=== PATIENT | female | born 1970 | race Caucasian/White ===

== ENCOUNTER 2016-10-27 18:05 | Emergency (ER) | payer MEDICAID ==
[2016-10-27 18:32] VITALS: O2SAT 100
--- NOTE | 2016-10-27 20:30 | C.PDOC ---
History Of Present Illness The patient, a 45 y/o female, presents to the ED for evaluation of dizziness which has been occurring in intermittent episodes for the past week. Patient describes her symptoms as a "room spinning" sensation and notes mild headache and nausea. Patient denies fever, chills, neck pain, extremity numbness/ weakness. Chief Complaint (Nursing): Dizziness/Lightheaded History Per: Patient History/Exam Limitations: no limitations Onset/Duration Of Symptoms: Intermittent Episodes (1 week ) Current Symptoms Are (Timing): Still Present Associated Symptoms Preceding Syncopal Episode: No Predromal Symptoms (Sudden Onset) Seizure Or Post-ictal Symptoms: None Fall Associated With With Symptoms: No Additional History Per: Patient Past Medical History Reviewed: Historical Data, Nursing Documentation, Vital Signs Vital Signs: Last Vital Signs Temp 98.1 F 10/27/16 18:29 Pulse 54 L 10/27/16 18:29 Resp 16 10/27/16 18:29 BP 105/69 10/27/16 18:29 Pulse Ox 100 10/27/16 22:56 - Medical History PMH: Asthma, Gastritis Surgical History: No Surg Hx Family History: States: Unknown Family Hx - Social History Hx Alcohol Use: Yes Hx Substance Use: No - Immunization History Hx Tetanus Toxoid Vaccination: No Hx Influenza Vaccination: No Hx Pneumococcal Vaccination: No Review Of Systems Except As Marked, All Systems Reviewed And Found Negative. Constitutional: Negative for: Fever, Chills Gastrointestinal: Positive for: Nausea Musculoskeletal: Negative for: Neck Pain Neurological: Positive for: Headache (mild ), Dizziness. Negative for: Weakness , Numbness Physical Exam - Physical Exam Appears: Non-toxic, No Acute Distress Skin: Normal Color, Warm, Dry Head: Atraumatic, Normacephalic Eye(s): bilateral: PERRL, EOMI, Other (+mild lateral nystagmus ) Ear(s): Bilateral: Normal Nose: Normal, No Discharge Oral Mucosa: Moist Throat: Normal, No Erythema, No Exudate Neck: Normal ROM, Supple Chest: Symmetrical, No Deformity, No Tenderness Cardiovascular: Rhythm Regular, No Murmur Respiratory: Normal Breath Sounds, No Rales, No Rhonchi, No Wheezing Back: Normal Inspection, No Vertebral Tenderness, No Paraspinal Tenderness Extremity: Normal ROM, Capillary Refill (less than 2 seconds ) Neurological/Psych: Oriented x3, Normal Speech, Normal Cognition, Other (no focal deficits ) Gait: Steady ED Course And Treatment - Laboratory Results Result Diagrams: 10/27/16 20:48 10/27/16 20:48 O2 Sat by Pulse Oximetry: 100 (on RA) Pulse Ox Interpretation: Normal Progress Note: labs, CT Head, and EKG ordered and reviewed. Patient received Antivert PO and Ativan IV. Disposition Counseled Patient/Family Regarding: Diagnosis - Disposition Referrals: [facility] [Outside] Disposition: HOME/ ROUTINE Disposition Time: 22:47 Condition: STABLE Prescriptions: Meclizine [Antivert] 12.5 mg PO Q6 #20 tab Potassium Chloride 10 meq PO DAILY #14 tab.er.prt Instructions: Vertigo (ED), Hypokalemia (DC), Dizziness (ED) - POA Present On Arrival: None - Clinical Impression Clinical Impression: Vertigo, Dizziness, Hypokalemia - Scribe Statement The provider has reviewed the documentation as recorded by the Scribe (Soila Stallings) Provider Attestation: All medical record entries made by the Scribe were at my direction and personally dictated by me. I have reviewed the chart and agree that the record accurately reflects my personal performance of the history, physical exam, medical decision making, and the department course for this patient. I have also personally directed, reviewed, and agree with the discharge instructions and disposition.
[2016-10-27 21:01] LABS: CHLORIDE 100 mmol/L (98-107); POTASSIUM 2.7 mmol/L (3.6-5.2); SODIUM 138 mmol/L (132-148)
[2016-10-27 21:03] LABS: ALB/GLOB RATIO 1.3 (1.0-2.1); ALKALINE PHOSPHATASE 61 U/L (38-126); ALT/SGPT 32 U/L (9-52); AST/SGOT 25 U/L (14-36); BILIRUBIN,TOTAL 0.7 mg/dL (0.2-1.3); BLOOD UREA NITROGEN 8 mg/dL (7-17); CARBON DIOXIDE 27 mmol/L (22-30); GFR AFRICAN-AMERICAN > 60; TOTAL PROTEIN 5.9 g/dL (6.3-8.3)
[2016-10-27 21:04] LABS: CALCIUM 8.1 mg/dl (8.6-10.4); GLUCOSE,RANDOM 81 mg/dL (65-105)
[2016-10-27 21:10] LABS: BASO % 0.5 % (0.0-2.0); EOS # 0.2 K/uL (0.0-0.7); EOS % 3.7 % (0.0-4.0); HEMATOCRIT 39.3 % (34.0-47.0); LYMPH % 33.8 % (20.0-40.0); MEAN CELL VOLUME 89.6 fL (81.0-99.0); MEAN CORPUSCULAR HGB CONC 33.5 g/dL (33.0-37.0); MEAN PLATELET VOLUME 8.3 fL (7.2-11.7); MONO # 0.9 K/uL (0.0-0.8); MONO % 14.6 % (0.0-10.0); NRBC % 0.4 % (0.0-2.0); RED CELL DISTRIBUTION WIDTH 12.7 % (11.5-14.5); WHITE BLOOD COUNT 5.9 K/uL (4.8-10.8)
--- NOTE | 2016-10-27 21:24 | CT ---
EXAM: CT Head Without Intravenous Contrast CLINICAL HISTORY: 45 years old, female; Pain; Headache; Headache not specified TECHNIQUE: Axial computed tomography images of the head/brain without intravenous contrast. This CT exam was performed using one or more of the following dose reduction techniques: automated exposure control, adjustment of the mA and/or kV according to patient size, and/or use of iterative reconstruction technique. COMPARISON: No relevant prior studies available. FINDINGS: Brain: No intracranial hemorrhage. No mass. No definite edema. Ventricles: No hydrocephalus. Bones/joints: No acute fracture. Soft tissues: Unremarkable. Sinuses: No acute sinusitis. Mastoid air cells: No mastoid effusion. Orbits: Unremarkable as visualized. IMPRESSION: 1. No acute intracranial abnormality. 2. Incidental/non-acute findings are described above.
[2016-10-27] MEDS ORDERED: Potassium Chloride 20 mEq ER Tab PO STA (22:23)
[2016-10-27] MEDS ORDERED: Potassium Chloride 20 mEq ER Tab PO ONE (22:55)
[2016-10-28 00:01] VITALS: BP 127/68; PULSE 60; RESP 20; TEMP 98
--- NOTE | 2016-10-28 11:47 | CARD ---
APPROVED REPORT EKG Measurement Heart [id number] UT 138P-3 [id number] <Conclusion> Sinus bradycardia Cannot rule out Anterior infarct, age undetermined Abnormal ECG
--- NOTE | 2016-10-28 11:50 | CARD ---
APPROVED REPORT EKG Measurement Heart [id number] ND 128P8 [id number] <Conclusion> Sinus bradycardia Inferior infarct, age undetermined Cannot rule out Anterior infarct, age undetermined Abnormal ECG
== END 2016-10-27 23:00 | disposition home or self-care (01) ==
LOC: C.ER 18:05
DX: E87.6 Hypokalemia (principal); R42 Dizziness and giddiness
CPT/HCPCS: 70450; 80053; 85025; 93005; 96374; 99285; J2060

== ENCOUNTER 2018-01-20 16:35 | Emergency (ER) | payer MEDICAID ==
[2018-01-20 16:44] VITALS: RESP 18; O2SAT 98
[2018-01-20] MEDS ORDERED: Sodium Chloride 0.9% 1,000 ML IV ONE (17:01)
[2018-01-20] MEDS ORDERED: Sodium Chloride 0.9% 1,000 ML ONE (17:08)
[2018-01-20 17:26] LABS: BASO % 0.6 % (0.0-2.0); EOS # 0.2 K/uL (0.0-0.7); EOS % 4.7 % (0.0-4.0); LYMPH # 1.3 K/uL (1.0-4.3); LYMPH % 27.8 % (20.0-40.0); MEAN CELL VOLUME 88.5 fL (81.0-99.0); MEAN CORPUSCULAR HEMOGLOBIN 30.5 pg (27.0-31.0); MEAN CORPUSCULAR HGB CONC 34.4 g/dL (33.0-37.0); MEAN PLATELET VOLUME 7.6 fL (7.2-11.7); MONO # 0.7 K/uL (0.0-0.8); MONO % 14.4 % (0.0-10.0); NEUT # 2.4 K/uL (1.8-7.0); NEUT % 52.5 % (50.0-75.0); NRBC % 0.1 % (0.0-2.0); RBC 4.27 Mil/uL (3.80-5.20); RED CELL DISTRIBUTION WIDTH 12.6 % (11.5-14.5); WHITE BLOOD COUNT 4.7 K/uL (4.8-10.8)
--- NOTE | 2018-01-20 17:43 | RAD ---
Date of service: 01/20/2018 HISTORY: SOB COMPARISON: 08/21/2015 TECHNIQUE: Chest PA and lateral FINDINGS: LUNGS: No active pulmonary disease. PLEURA: No significant pleural effusion identified. No pneumothorax apparent. CARDIOVASCULAR: Normal. OSSEOUS STRUCTURES: No significant abnormalities. VISUALIZED UPPER ABDOMEN: Normal. OTHER FINDINGS: None. IMPRESSION: No active disease.
[2018-01-20 17:44] LABS: ALB/GLOB RATIO 1.6 (1.0-2.1); ALBUMIN 3.9 g/dL (3.5-5.0); ALT/SGPT 29 U/L (9-52); AST/SGOT 27 U/L (14-36); BLOOD UREA NITROGEN 7 mg/dL (7-17); CALCIUM 8.6 mg/dl (8.6-10.4); GFR NON-AFRICAN AMERICAN > 60
--- NOTE | 2018-01-20 17:51 | C.PDOC ---
History Of Present Illness 47 y/o female presents to with c/o lightheadedness, weakness, fatigue and palpitations for years. Patient has been worked up by Dr. Nicole for same in the past and states this time Symptoms prolonged which prompted visit to ED. Contrary to triage patient denies chest pain, sob, nausea, vomiting or any other complaints at this time. Time Seen by Provider: 01/20/18 16:45 Chief Complaint (Nursing): Dizziness/Lightheaded History Per: Patient History/Exam Limitations: no limitations Onset/Duration Of Symptoms: Days Current Symptoms Are (Timing): Still Present Past Medical History Reviewed: Historical Data, Nursing Documentation, Vital Signs Vital Signs: Last Vital Signs Temp 99.1 F 01/20/18 16:41 Pulse 78 01/20/18 16:41 Resp 18 01/20/18 16:41 BP 126/81 01/20/18 16:41 Pulse Ox 98 01/20/18 17:58 - Medical History PMH: Asthma, Gastritis Surgical History: No Surg Hx Family History: States: No Known Family Hx - Social History Hx Alcohol Use: Yes Hx Substance Use: No - Immunization History Hx Tetanus Toxoid Vaccination: No Hx Influenza Vaccination: No Hx Pneumococcal Vaccination: No Review Of Systems Except As Marked, All Systems Reviewed And Found Negative. Constitutional: Positive for: Weakness, Other (fatigue) Cardiovascular: Positive for: Palpitations, Light Headedness Physical Exam - Physical Exam Appears: Non-toxic, No Acute Distress Skin: Warm, Dry, No Rash Head: Atraumatic, Normacephalic Eye(s): bilateral: Normal Inspection Oral Mucosa: Moist Neck: Supple Cardiovascular: Rhythm Regular Respiratory: Normal Breath Sounds, No Rales, No Rhonchi, No Wheezing Gastrointestinal/Abdominal: Soft, No Tenderness, No Guarding, No Rebound Extremity: Normal ROM, Capillary Refill (<2 seconds) Neurological/Psych: Oriented x3, Normal Speech, Normal Cognition ED Course And Treatment - Laboratory Results Result Diagrams: 01/20/18 17:22 01/20/18 17:22 ECG: Interpreted By Me, Viewed By Me ECG Rhythm: Sinus Rhythm (arrythmia) Rate From EC (BPM) O2 Sat by Pulse Oximetry: 98 (RA) Pulse Ox Interpretation: Normal Medical Decision Making Medical Decision Making: Assessment: Fatigue Progress: 1744- D/W Dr. Nicole will call back for further information of patient. 1752: D/w saw her on 10/2017 and had normal ejection fraction shown, normal echo, stress test normal, had halter monitor, states under cardiac point of view, patient okay to be discharged and follow up with him tomorrow at office Heart rate Sitting- 74 Standing- 75 Blood pressure Sitting- 116/70 Standing- 116/73 1846 - fatigue, hypokalemia - will discharge home and advise follow up with DR. Nicole within 2 days Disposition Counseled Patient/Family Regarding: Studies Performed, Diagnosis, Need For Followup - Disposition Disposition: HOME/ ROUTINE Disposition Time: 18:47 Condition: STABLE Additional Instructions: follow up with Dr. Nicole tomorrow call to make an appointment maintain hydration return to ER if symptoms worsens or progress Instructions: Fatigue (DC) Forms: [facility] ([place]), General Discharge Instructions, Work Excuse - Clinical Impression Clinical Impression: Fatigue - Scribe Statement The provider has reviewed the documentation as recorded by the April Mckeon All medical record entries made by the Jolieibrowan were at my direction and personally dictated by me. I have reviewed the chart and agree that the record accurately reflects my personal performance of the history, physical exam, medical decision making, and the department course for this patient. I have also personally directed, reviewed, and agree with the discharge instructions and disposition.
[2018-01-20] MEDS ORDERED: Potassium Chloride 20 mEq ER Tab PO STA (18:16)
[2018-01-20] MEDS ORDERED: Potassium Chloride 20 mEq ER Tab PO ONE (18:24)
[2018-01-20 18:41] LABS: SQUAMOUS EPITHIAL 39 /hpf (0-5); URINE BACTERIA RARE (<OCC); URINE BILIRUBIN NEGATIVE (NEGATIVE); URINE BLOOD NEGATIVE (NEGATIVE); URINE CLARITY Hazy (Clear); URINE COLOR Amber (YELLOW); URINE GLUCOSE (UA) NORMAL (Normal); URINE LEUKOCYTE ESTERASE NEG Leu/uL (Negative); URINE PROTEIN 1+ mg/dL (NEGATIVE)
[2018-01-20 18:47] VITALS: BP 125/66; PULSE 67; TEMP 98.1
--- NOTE | 2018-01-21 20:10 | CARD ---
APPROVED REPORT Date of service: 01/20/2018 EKG Measurement Heart [id number] [id number] <Conclusion> Normal sinus rhythm with sinus arrhythmia Low voltage QRS Borderline ECG
== END 2018-01-20 19:13 | disposition home or self-care (01) ==
LOC: C.ER 16:35
DX: R53.83 Other fatigue (principal)
CPT/HCPCS: 71046; 80053; 81001; 83735; 84443; 84484; 85025; 93005; 96360; 99285; J7030